=== PATIENT | male | born 1975 ===

== ENCOUNTER 2017-08-29 11:00 | Inpatient (IN) | payer OTHER ==
[~2017-08-29] VITALS: Ht 160 cm; Wt 94.3 kg
[2017-09-08] MEDS ORDERED: Intestinex CAP PO (07:50)
[2017-09-08] MEDS ORDERED: OXYC1TAB9 PO (07:50)
[2017-09-08] MEDS ORDERED: INTESTINEX680 M1 PO (07:51)
== END 2017-09-08 09:55 | disposition home or self-care (01) | DRG 330 ==
LOC: O/R 09-04 06:25 → SURG 09-04 07:00 → SURH 09-04 13:28
PROVIDERS: Surgery
PROC: 0DJD8ZZ Inspection of Lower Intestinal Tract, Via Natural or Artificial Opening Endoscopic (ICD-10-PCS; 2017-09-04)
PROC: 0WQF4ZZ Repair Abdominal Wall, Percutaneous Endoscopic Approach (ICD-10-PCS; 2017-09-04)
PROC: 0DTN4ZZ Resection of Sigmoid Colon, Percutaneous Endoscopic Approach (ICD-10-PCS; principal; 2017-09-04 07:00)
DX: K57.32 Diverticulitis of large intestine without perforation or abscess without bleeding (principal); K42.0 Umbilical hernia with obstruction, without gangrene; I11.9 Hypertensive heart disease without heart failure; D64.89 Other specified anemias